=== PATIENT | female | born 1990 | race Caucasian/White ===

== ENCOUNTER 2017-05-03 21:43 | Emergency (ER) | payer OTHER ==
[2017-05-03 21:51] VITALS: BP 122/71; PULSE 84; TEMP 98.3
--- NOTE | 2017-05-03 22:08 | C.PDOC ---
Time Seen by Provider: 05/03/17 22:08 Chief Complaint (Nursing): Abdominal Pain Past Medical History Vital Signs: Last Vital Signs Temp 98.3 F 05/03/17 21:48 Pulse 84 05/03/17 21:48 Resp 20 05/03/17 21:48 BP 122/71 05/03/17 21:48 Pulse Ox 100 05/03/17 21:48 - Medical History PMH: Gastritis Family History: States: Unknown Family Hx - Social History Hx Tobacco Use: No Hx Alcohol Use: No Hx Substance Use: No - Immunization History Hx Tetanus Toxoid Vaccination: No Hx Influenza Vaccination: No Hx Pneumococcal Vaccination: No ED Course And Treatment O2 Sat by Pulse Oximetry: 100 Disposition Counseled Patient/Family Regarding: Studies Performed, Diagnosis - Disposition Disposition Time: 22:08
[2017-05-03] MEDS ORDERED: Sodium Chloride 0.9% 1,000 ML IV ONE (22:09)
--- NOTE | 2017-05-03 22:09 | C.PDOC ---
History Of Present Illness pt found out she is and presents with abdominal cramping and vaginal bleeding over the last 2 days. No f/c, some nausea. Thinks her LMP was 01/12/17 Time Seen by Provider: 05/03/17 22:08 Chief Complaint (Nursing): Abdominal Pain History Per: Patient History/Exam Limitations: no limitations Onset/Duration Of Symptoms: Days Current Symptoms Are (Timing): Still Present Severity: Mild Pain Scale Rating Of: 2 Quality Of Discomfort: Dull Associated Symptoms: denies: Fever, Chills Alleviating Factors: None Recent travel outside of the [place]: No Additional History Per: Patient Abnormal Vaginal Bleeding: Yes Past Medical History Reviewed: Historical Data, Nursing Documentation, Vital Signs Vital Signs: Last Vital Signs Temp 98.3 F 05/03/17 21:48 Pulse 84 05/03/17 21:48 Resp 20 05/03/17 21:48 BP 122/71 05/03/17 21:48 Pulse Ox 100 05/03/17 22:23 - Medical History PMH: Gastritis Family History: States: No Known Family Hx - Social History Hx Tobacco Use: No Hx Alcohol Use: No Hx Substance Use: No - Immunization History Hx Tetanus Toxoid Vaccination: No Hx Influenza Vaccination: No Hx Pneumococcal Vaccination: No Review Of Systems Constitutional: Negative for: Fever, Chills Eyes: Negative for: Vision Change ENT: Negative for: Throat Pain Cardiovascular: Negative for: Chest Pain Respiratory: Negative for: Shortness of Breath Gastrointestinal: Positive for: Nausea, Abdominal Pain Genitourinary: Negative for: Dysuria Musculoskeletal: Negative for: Back Pain Skin: Negative for: Rash, Lesions, Jaundice Neurological: Negative for: Weakness Psych: Negative for: Anxiety Physical Exam - Physical Exam Appears: Non-toxic, No Acute Distress Skin: Warm, Dry Head: Normacephalic Eye(s): bilateral: Normal Inspection Oral Mucosa: Moist Neck: Supple Chest: Symmetrical Cardiovascular: Rhythm Regular Respiratory: No Rales, No Rhonchi, No Wheezing Gastrointestinal/Abdominal: Soft, Tenderness (suprapubic), No Distention, No Guarding Back: No CVA Tenderness Extremity: No Tenderness Extremity: Bilateral: Atraumatic, Normal Color And Temperature, Normal ROM Neurological/Psych: Oriented x3, Normal Speech, Normal Cognition Gait: Steady ED Course And Treatment - Laboratory Results Result Diagrams: 05/03/17 22:10 05/03/17 22:10 O2 Sat by Pulse Oximetry: 100 Pulse Ox Interpretation: Normal Reevaluation Time: 23:17 Reassessment Condition: Improved Medical Decision Making Medical Decision Making: Upon provider reevaluation patient is feeling better, is medically stable, and requires no further treatment in the ED at this time. Patient will be discharged home . Counseling was provided and all questions were answered regarding diagnosis and need for follow up with the referred clinic. There is agreement to discharge plan. Return if symptoms persist or worsen. Disposition Counseled Patient/Family Regarding: Studies Performed, Diagnosis, Need For Followup - Disposition Referrals: [facility] [Outside] Disposition: HOME/ ROUTINE Disposition Time: 22:09 Condition: FAIR Additional Instructions: Please return of symptoms recur Instructions: Threatened Miscarriage (ED) - Clinical Impression Clinical Impression: Threatened
[2017-05-03 22:21] LABS: BASO # 0.1 K/uL (0.0-0.2); BASO % 0.8 % (0.0-2.0); EOS # 0.1 K/uL (0.0-0.7); HEMATOCRIT 37.1 % (34.0-47.0); LYMPH # 2.9 K/uL (1.0-4.3); LYMPH % 32.6 % (20.0-40.0); MEAN CELL VOLUME 87.4 fL (81.0-99.0); MEAN CORPUSCULAR HEMOGLOBIN 28.1 pg (27.0-31.0); MEAN CORPUSCULAR HGB CONC 32.1 g/dL (33.0-37.0); MEAN PLATELET VOLUME 8.8 fL (7.2-11.7); MONO % 11.2 % (0.0-10.0); RED CELL DISTRIBUTION WIDTH 14.1 % (11.5-14.5)
[2017-05-03] MEDS ORDERED: Sodium Chloride 0.9% 1,000 ML ONE (22:30)
[2017-05-03 22:31] LABS: CHLORIDE 105 mmol/L (98-107); INR 1.1; SODIUM 135 mmol/L (132-148)
[2017-05-03 22:33] LABS: BILIRUBIN,TOTAL 0.7 mg/dL (0.2-1.3); GFR AFRICAN-AMERICAN > 60
[2017-05-03 22:34] LABS: ALKALINE PHOSPHATASE 65 U/L (38-126); ALT/SGPT 13 U/L (9-52); AST/SGOT 24 U/L (14-36); BLOOD UREA NITROGEN 8 mg/dL (7-17); CALCIUM 8.7 mg/dl (8.6-10.4); CARBON DIOXIDE 21 mmol/L (22-30); GLUCOSE,RANDOM 89 mg/dL (65-105); TOTAL PROTEIN 7.7 g/dL (6.3-8.3)
[2017-05-03 22:39] LABS: RBC URINE 1 /hpf (0-3); TRANSITIONAL EPITHIAL < 1 /hpf (0-3); URINE BACTERIA RARE (<OCC); URINE BILIRUBIN NEGATIVE (NEGATIVE); URINE BLOOD 1+ (NEGATIVE); URINE COLOR Colorless (YELLOW); URINE GLUCOSE (UA) NORMAL (Normal); URINE KETONE NEGATIVE (NEGATIVE); URINE LEUKOCYTE ESTERASE NEG Leu/uL (Negative); URINE PROTEIN NEGATIVE (NEGATIVE); URINE UROBILINOGEN NORMAL mg/dL (0.2-1.0); WBC URINE < 1 /hpf (0-5)
[2017-05-03 23:27] VITALS: RESP 18; O2SAT 99
--- NOTE | 2017-05-04 07:58 | US ---
Pelvic ultrasound History: Vaginal bleeding. . Comparison: None available. Technique: Real-time sonography was performed through the [place]. [place] [address]. Uterus: 11.6 x 6.1 x 6.8 centimeters. Anteverted. Intrauterine with intrauterine gestational sac measuring 2.9 centimeters corresponding to a gestational age of 7 weeks and 6 days. Yolk sac measures 4 millimeters. Garza-[place] Ii-rump length measures 9 millimeters corresponding to a gestational age of 6 weeks and 6 days. heart rate of 156 beats per minute. No free fluid in the pelvic cul-de-sac. Right ovary: 2.9 x 1.7 x 2.8 centimeters. Normal flow. Left ovary: 2.8 x 3.0 x 2.3 centimeters. Normal flow. Impression: Single viable intrauterine gestation corresponding to a gestational age of approximately 6 weeks and 6 days by crown-rump length of 9 millimeters. heart rate of 156 beats per minute. Limited 1st trimester ultrasound for viability purposes only. Continued interval followup with serial ultrasound, serial HCG levels, and gynecological consultation would be helpful if clinically indicated. These findings were preliminarily reported at 11:12 p.m. on 05/03/[address] Lorenzo Garcia from [facility].
== END 2017-05-03 23:26 | disposition home or self-care (01) ==
LOC: C.ER 21:43
DX: O20.0 Threatened abortion (principal); Z3A.01 Less than 8 weeks gestation of pregnancy
CPT/HCPCS: 76801; 80053; 81001; 84702; 85025; 85610; 85730; 86850; 86900; 96360; 99285; J7040

== ENCOUNTER 2017-06-23 14:15 | Emergency (ER) | payer MEDICAID, OTHER ==
[2017-06-23 14:16] VITALS: BMI 28.7
--- NOTE | 2017-06-23 14:28 | C.PDOC ---
History Of Present Illness 27 year old female presents to the ED with complaints of pain, burning, and pruritus to area of left flank following a bee sting. Patient notes she is 14 weeks and denies shortness of breath, throat swelling, or other complaints. Chief Complaint (Nursing): Allergic Reaction History Per: Patient History/Exam Limitations: no limitations Onset/Duration Of Symptoms: Hrs Current Symptoms Are (Timing): Still Present Possible Cause: Other (bee sting ) Associated Symptoms: Itching, Redness Home/EMS Treatment: None Recent travel outside of the [place]: No Past Medical History Reviewed: Historical Data, Nursing Documentation, Vital Signs Vital Signs: Last Vital Signs Temp 97.9 F 06/23/17 15:20 Pulse 88 06/23/17 15:20 Resp 18 06/23/17 15:20 BP 101/60 06/23/17 15:20 Pulse Ox 100 06/23/17 15:20 - Medical History PMH: Gastritis Family History: States: Unknown Family Hx - Social History Hx Tobacco Use: No Hx Alcohol Use: No Hx Substance Use: No - Immunization History Hx Tetanus Toxoid Vaccination: No Hx Influenza Vaccination: No Hx Pneumococcal Vaccination: No Review Of Systems Constitutional: Negative for: Fever, Chills Cardiovascular: Negative for: Chest Pain, Palpitations Respiratory: Negative for: Cough, Shortness of Breath Gastrointestinal: Negative for: Nausea, Vomiting, Abdominal Pain, Diarrhea Musculoskeletal: Positive for: Other (burning and pruritus to area of left flank ) Physical Exam - Physical Exam Appears: Non-toxic, No Acute Distress Skin: Warm, Dry, Other (3 cm area of local erythema ) Head: Atraumatic Eye(s): bilateral: Normal Inspection, EOMI Ear(s): Bilateral: Normal Nose: Normal, No Discharge Oral Mucosa: Moist Tongue: Normal Appearing, No Swelling Lips: Normal Appearing, No Swelling Throat: Normal, No Erythema, No Exudate Neck: Supple Chest: Symmetrical, No Deformity Cardiovascular: Rhythm Regular, No Murmur Respiratory: Normal Breath Sounds, No Rhonchi, No Wheezing Neurological/Psych: Oriented x3, Normal Speech, Normal Cognition Gait: Steady ED Course And Treatment Progress Note: Patient was given Tylenol and Benadryl. Disposition - Disposition Disposition: HOME/ ROUTINE Disposition Time: 15:23 Condition: STABLE Additional Instructions: Follow up with PMD within 1-2 days. Return to ED if feel worse. Prescriptions: DiphenhydrAMINE [Benadryl] 25 mg PO .Q4-6 H #30 cap Acetaminophen [Tylenol 325mg tab] 2 tab PO Q6 #50 tab Instructions: Insect Bite or Sting (ED) Forms: [facility] (Slovenian) - Clinical Impression Clinical Impression: Bee sting - Scribe Statement The provider has reviewed the documentation as recorded by the Rayoibe Chen Aguayo All medical record entries made by the Rayoibnguyễn were at my direction and personally dictated by me. I have reviewed the chart and agree that the record accurately reflects my personal performance of the history, physical exam, medical decision making, and the department course for this patient. I have also personally directed, reviewed, and agree with the discharge instructions and disposition.
[2017-06-23 15:21] VITALS: BP 101/60; PULSE 88; RESP 18; TEMP 97.9; O2SAT 100
== END 2017-06-23 15:32 | disposition home or self-care (01) ==
LOC: C.ER 14:15
DX: T63.441A Toxic effect of venom of bees, accidental (unintentional), initial encounter (principal)